=== PATIENT | female | born 1940 | race African-American/Black ===

== ENCOUNTER 2019-01-18 18:24 | Emergency (ER) | payer OTHER, BC ==
[~2019-01-18] VITALS: Ht 157.5 cm; Wt 68.0 kg
[2019-01-18] MEDS ORDERED: NORCO 5-325 TA1 EAC1 PO (21:52)
[2019-01-18 22:24] VITALS: BP 116/60
== END 2019-01-18 22:35 | disposition home or self-care (01) ==
LOC: ER 18:24
DX: S42.295A Other nondisplaced fracture of upper end of left humerus, initial encounter for closed fracture (principal); S80.01XA Contusion of right knee, initial encounter; I10 Essential (primary) hypertension; E11.9 Type 2 diabetes mellitus without complications; W18.39XA Other fall on same level, initial encounter; Y93.89 Activity, other specified; Y92.481 Parking lot as the place of occurrence of the external cause; Y99.8 Other external cause status

== ENCOUNTER 2020-08-20 21:05 | Inpatient (IN) | payer OTHER, BC ==
[~2020-08-20] VITALS: Ht 160 cm; Wt 52.5 kg
--- NOTE | ~2020-08-20 | EMS ---
[address] [address] EMS Patient Care Report Name: SILVANO JONES Room #: PRE ER M.R.#: [id number] Admission: Attend Phys: Discharge: Date of : 42 Report #: [id number] THIS REPORT FOR: //name// Report Transmitted: 08/20/2020 21:48 EMS Care Summary [place], [place]/[facility] Incident [id number] @ 08/20/2020 20:17 Incident [place] [address] Patient SILVANO JONES Female, 80 Years 1940 Patient Address [address] [place] [address] Patient History Diabetes,Hypertension (HTN),Hyperlipidemia,Cardiac Condition - Other,Mastectomy, Patient Allergies Other drug allergy, Patient Medications Lovastatin, Potassium, Vitamin B12, Furosemide, Carvedilol, Metformin, Chief Complaint COUGH Disposition Transported No Lights/Check Dispatch Reason Sick Person Transported To [facility] Narrative DISPATCHED EMERGENCY ON A SICK. PUMPER 42 [address] SC[address] SIMULTANEOUSLY. 80 Y/O FEMALE LAYING SUPINE IN BED APPEARING IN NO IMMEDIATE DISTRESS. GCS 15 AND A/OX4. STATES THAT SHE STARTED HAVING A COUGH AND WEAKNESS 2 WEEKS AGO. STATES SHE SAW HER DOCTOR LAST WEEK AND HE PRESCRIBED HER MEDICINE BUT SHE FEELS WORSE [facility] [address] [place] [address] EMS Patient Care Report Name: SILVANO JONES Room #: PRE M.R.#: [id number] Admission: Attend Phys: Discharge: Date of : 42 Report #: [id number] TODAY. STATES THAT SHE HAS BEEN COUGHING UP THICK WHITE MUCOUS. DENIES ANY SOA, C/P, NAUSEA, VOMITING. CONSENTS FOR TX AND TRANSPORTATION. V/S'S OBTAINED. MOVED WITHOUT INCIDENT TO AMBULANCE VIA STRETCHER. PLACED ON MONITOR AND V/S'S OBTAINED. IV ESTABLISHED. TRANSPORTED TO [facility] PER PT REQUEST. REASSESSED ENROUTE. REMAINS GCS 15 AND ALERT. V/S'S CONTINOUSLY MONITORED ENROUTE. COUGH AND WEAKNESS REMAIN UNCHANGED. REPORT CALLED TO HOSPITAL. MOVED WITHOUT INCIDENT TO ER HOSPITAL BED 6. PT CARE TRANSFERRED TO ED RN. Initial Vitals @20:55P: 88,R: 18,BP: 121/84,Pain: 0/10,SpO2: 100,MN Suspected: false @20:48P: 98,R: 20,BP: 130/88,GCS: 15,SpO2: 96,Revised Trauma: 12, @20:25P: 70,R: 18,BP: 107/73,Pain: 0/10,GCS: 15,Glucose: 317,SpO2: 95,Revised Trauma: 12, @20:36P: 90,R: 20,BP: 121/81,Pain: 0/10,GCS: 15,Temp: 98F,CO: 0,SpO2: 98,Revised Trauma: 12, Assessments @20:24MENTAL:Person Oriented,Time Oriented,Place Oriented,Event Oriented,SKIN:HEENT:Head/Face: No Abnormalities,Neck/Airway: No Abnormalities,LUNG SOUNDS:General: No Abnormalities,ABDOMEN:General: No Abnormalities,PELVIS//GI:EXTREMITIES:Capillary Refill: Left Lower: < 2 Sec,Capillary Refill: Right Lower: < 2 Sec,Capillary Refill: Right Upper: < 2 Sec,Capillary Refill: Left Upper: < 2 Sec,Left Arm: No Abnormalities,Right Arm: No Abnormalities,Left Leg: No Abnormalities,Right Leg: No Abnormalities,PULSE:Radial: 2+ Normal,NEURO:No Abnormalities,@20:54MENTAL:No Abnormalities,SKIN:No Abnormalities,HEENT:Head/Face: No Abnormalities,Eyes: No Abnormalities,Neck/Airway: No Abnormalities,LUNG SOUNDS:General: No Abnormalities,Left Upper: No Abnormalities,Right Upper: No Abnormalities,Left Lower: No Abnormalities,Right Lower: No Abnormalities,ABDOMEN:General: No Abnormalities,Left Upper: No Abnormalities,Right Upper: No Abnormalities,Left Lower: No Abnormalities,Right Lower: No Abnormalities,PELVIS//GI:EXTREMITIES:Left Arm: No Abnormalities,Right Arm: No Abnormalities,Left Leg: No Abnormalities,Right Leg: No Abnormalities,PULSE:NEURO: Impression Cough Procedures @20:38Saline Lock cc (18 ga) Site: Antecubital-RightResponse: UnchangedFailed@20:38StretcherResponse: Unchanged@20:413-Lead ECGResponse: UnchangedSucceeded@20:23ALS AssessmentResponse: UnchangedSucceeded@20:41Saline Lock cc (20 ga) Site: Hand-RightResponse: UnchangedFailed@20:43 cc (20 ga) Site: Antecubital-LeftResponse: UnchangedFailed@20:46Saline Lock 10cc (20 ga) Site: Hand-LeftResponse: UnchangedSucceeded [facility] [address] [place] [address] EMS Patient Care Report Name: JONESSILVANO Room #: PRE M.R.#: [id number] Admission: Attend Phys: Discharge: Date of : 42 Report #: [id number] Timeline 20:16,Call Received 20:16,Dispatch Notified 20:17,Dispatched 20:18,En Route 20:22,On Scene 20:23,At Patient 20:23,ALS Assessment,Response: UnchangedSucceeded, 20:25,BP: 107/73 M,PULSE: 70,RR: 18 R,SPO2: 95 Ox,ETCO2: ,B,PAIN: 0,GCS: 15, 20:36,BP: 121/81 M,PULSE: 90,RR: 20 R,SPO2: 98 Ox,ETCO2: ,BG: ,PAIN: 0,GCS: 15, 20:38,Saline Lock cc 18 ga Site: Antecubital-Right,Response: UnchangedFailed, 20:38,Stretcher,Response: Unchanged 20:41,3-Lead ECG,Response: UnchangedSucceeded, 20:41,Saline Lock cc 20 ga Site: Hand-Right,Response: UnchangedFailed, 20:42,Depart Scene 20:43, cc 20 ga Site: Antecubital-Left,Response: UnchangedFailed, 20:46,Saline Lock 10cc 20 ga Site: Hand-Left,Response: UnchangedSucceeded, 20:48,BP: 130/88 M,PULSE: 98,RR: 20 R,SPO2: 96 Ox,ETCO2: ,BG: ,PAIN: ,GCS: 15, 20:55,BP: 121/84 M,PULSE: 88,RR: 18 R,SPO2: 100 Ox,ETCO2: ,BG: ,PAIN: 0,GCS: , 21:01,At Destination 21:14,Call Closed Disclaimer v1.1 Copyright 2020 [employer] This EMS Care Summary contains data elements from the applicable legal record (which may be displayed differently). It is designed to provide pertinent information for the following purposes: continuity of care, clinical quality, and state data reporting. The complete legal record is available to ED staff and administrators of the receiving hospital in ES's Patient Tracker. All data is provided "as is."
[2020-08-20 21:05] VITALS: BP 126/70
[~2020-08-20 21:05] MED LIST: NORCO 5-325 TA1 EAC1 PO
[2020-08-20 22:31] LABS: BE(vivo) -7.3 mmol/L (-2 to +3); HCO3 16.9 mmol/L (22.0-26.0); PCO2 30.6 mmHg (35.0-45.0); pH 7.361 (7.360-7.450); sO2 87.8 % (92.0-98.0)
[2020-08-20 22:32] LABS: PO2 54.7 mmHg (80.0-100.0)
[2020-08-20 22:42] LABS: EOSINOPHILS 0.1 % (0.0-3.0)
[2020-08-20 22:44] LABS: ABSOLUTE NEUTROPHILS 6.7 thou/uL (1.4-8.2); BASOPHILS 0.2 % (0.0-2.0); HEMATOCRIT 35.8 % (37.0-47.0); HEMOGLOBIN 11.8 gm/dL (12.0-15.0); LYMPHOCYTES 10.2 % (24.0-44.0); MCH 29.9 pg (26.0-34.0); MCHC 32.9 g/dL (28.0-37.0); MCV 90.9 fL (80.0-100.0); MONOCYTES 9.3 % (1.0-8.0); PLATELET COUNT 205 thou/uL (150-400); POLYS 80.2 % (36.0-66.0); RBC 3.94 mil/uL (4.20-5.00); RDW 15.4 % (10.5-14.5); WBC 8.4 thou/uL (4.0-11.0)
[2020-08-20 22:54] LABS: ANION GAP 12 mmol/L (7-16); BUN 44 mg/dL (7-18); CALCIUM 8.5 mg/dL (8.5-10.1); CHLORIDE 107 mmol/L (98-107); CO2 17 mmol/L (21-32); CREATININE 1.4 mg/dL (0.6-1.0); GLUCOSE 298 mg/dL (74-106); POTASSIUM 5.7 mmol/L (3.5-5.1); SODIUM 136 mmol/L (136-145)
[2020-08-20 22:58] LABS: ALBUMIN 3.6 g/dL (3.4-5.0); SGOT 32 U/L (15-37); SGPT 58 U/L (30-65); TOTAL BILIRUBIN 0.9 mg/dL (0.2-1.0); TOTAL PROTEIN 6.6 g/dL (6.4-8.2); TROPONIN-I <0.06 ng/mL (<0.06)
[2020-08-20 23:11] LABS: URINE BILIRUBIN 1+ (Negative); URINE BLOOD NEGATIVE (Negative); URINE CLARITY SL CLOUDY; URINE COLOR YELLOW; URINE GLUCOSE-RANDOM* NEGATIVE (Negative); URINE KETONES TRACE (Negative); URINE LEUKOCYTES-REFLEX NEGATIVE (Negative); URINE NITRITE-REFLEX NEGATIVE (Negative); URINE PROTEIN (DIPSTICK) 2+ (Negative); URINE SPECIFIC GRAVITY >= 1.030 (1.005-1.035)
[2020-08-20 23:31] VITALS: BP 126/70
[2020-08-20 23:46] LABS: SQUAMOUS 4-10 Moderate /LPF (0-3); URINE RBC 3-10 Few /HPF (0-2); URINE WBC-REFLEX 0-5 Rare /HPF (0-5)
[2020-08-20 23:47] LABS: AMORPHOUS URATES Moderate /LPF (None Seen); BACTERIA-REFLEX 1-9 Few /HPF (None Seen); HYALINE CASTS 0-3 Few /LPF (None Seen); MUCUS 0-3 Light strn/LPF (None Seen)
[2020-08-21] MEDS ORDERED: FUROSEMIDE 40 M40 M1 PO (00:10)
[2020-08-21] MEDS ORDERED: POTASSIUM CHLO10 ME1 PO (00:10)
[2020-08-21 00:38] VITALS: BP 119/65
[2020-08-21 02:05] LABS: HEMATOCRIT 32.9 % (37.0-47.0); HEMOGLOBIN 10.7 gm/dL (12.0-15.0); MCH 29.4 pg (26.0-34.0); MCHC 32.5 g/dL (28.0-37.0); MCV 90.5 fL (80.0-100.0); RBC 3.63 mil/uL (4.20-5.00); RDW 15.3 % (10.5-14.5); WBC 7.9 thou/uL (4.0-11.0)
[2020-08-21 02:12] LABS: ALBUMIN 3.2 g/dL (3.4-5.0); CALCIUM 8.3 mg/dL (8.5-10.1); CREATININE 1.6 mg/dL (0.6-1.0); TOTAL BILIRUBIN 0.7 mg/dL (0.2-1.0); TOTAL PROTEIN 6.1 g/dL (6.4-8.2)
[2020-08-21 02:19] LABS: POTASSIUM 4.5 mmol/L (3.5-5.1)
--- NOTE | 2020-08-21 04:29 | NUR ---
Admitted from ED tachypneic respirations 30-40, Sinus arrythmia with frequent PVCS on 3 L/NC. Admission history and assessments completed. Careplan initiated. Patient now on BIPAP with attempt to diurese. Lasix 40 mg IV given- put out 2000 cc per mondragon catheter which was placed for accurate intake and output measurement. Sats now 100% BIPAP at 50% oxygen. Abnormal labs reported to Bruce Salcedo CAREER TECHNICAL EDUCATION INSTRUCTOR with orders.
[2020-08-21 05:38] VITALS: BP 121/89
--- NOTE | 2020-08-21 07:08 | EKG ---
[place] [address] [facility] [place] [address] ELECTROCARDIOGRAM REPORT Name: SILVANO JONES Room #: 353-P ADM IN M.R.#: [id number] Admission: 08/20/20 Attend Phys: Jamel Sims Discharge: Date of : 42 Report #: [id number] [facility] ED Test Date: 2020-08-20 Test Time: 21:15:26 Pat Name: SILVANO JONES Department: Room: 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
--- NOTE | 2020-08-21 11:16 | 2DMMODE ---
[facility] [place] [address] 2 D/M-MODE ECHOCARDIOGRAM Name: SILVANO JONES Room #: 353-P ADM IN M.R.#: [id number] Admission: 08/20/20 Attend Phys: Jamel Sims Discharge: Date of : 42 Report #: [id number] THIS REPORT FOR: cc: Criss Dickinson K. Steven DO Santiago, Patrick MD [facility] ~ APPROVED REPORT Study performed: 08/21/2020 10:08:56 EXAM: Comprehensive 2D, Doppler, and color-flow Echocardiogram Patient Location: In-Patient/Echo lab Room #: 353 Status: routine BSA: 1.61 HR: 96 bpm BP: 121/89 mmHg Rhythm: Irregular Other Information Study Quality: Good Indications Respiratory failure, CHF. Hx: CHF, HTN, HLP, DM. 2D Dimensions RVDd: 46.95 mm IVSd: 7.06 (7-11mm) LVOT Diam: 18.81 (18-24mm) LVDd: 59.73 mm PWd: 9.39 (7-11mm) Ascending Ao: 34.59 (22-36mm) LVDs: 53.90 (25-40mm) Left Atrium: 41.98 (27-40mm) Aortic Root: 31.70 mm Volumes Left Atrial Volume (Systole) Single Plane 4CH: 65.88 mL Single Plane 2CH: 78.78 mL LA ESV Index: 48.00 mL/m2 Aortic Valve AoV Peak Ross.: 1.22 m/s AO Peak Gr.: 5.93 mmHg LVOT Max P.88 mmHg LVOT Max V: 0.69 m/s [facility] [address] [address] 2 D/M-MODE ECHOCARDIOGRAM Name: JONESSILVANO Room #: 353-P [facility] IN [facility]#: [id number] Admission: 08/20/20 Attend Phys: Jamel Talley Mar Discharge: Date of : 42 Report #: [id number] ALEKSANDER Vmax: 1.57 cm2 Mitral Valve MV Decel. Time: 295.82 ms MV E Max Ross.: 1.45 m/s MV PHT: 81.37 ms MVA (PHT): 2.70 cm2 Pulmonary Valve PV Peak Ross.: 0.81 m/s PV Peak Gr.: 2.62 mmHg Tricuspid Valve TR Peak Ross.: 3.50 m/s RAP Estimate: 10.00 mmHg TR Peak Gr.: 49.07 mmHg PA Pressure: 59.00 mmHg Left Ventricle Left ventricle is mild to moderately dilated. There is normal left ventricular wall thickness. Left ventricular systolic function is severely decreased. LVEF is 20%. This study is not technically sufficient to allow evaluation of the LV diastolic function. Right Ventricle Right ventricle is dilated. Right ventricle is hypokinetic. Atria Left atrium is moderate to severely dilated. Right atrium is moderately dilated. Aortic Valve The aortic valve is normal in structure, midly sclerotic. Trace aortic regurgitation. There is no aortic valvular stenosis. Mitral Valve Patient states history of mitral valve repair. (Not noted in chart). Mean gradient through the valve is 4mmHg. Mild to moderate mitral regurgitation. Tricuspid Valve The tricuspid valve is normal in structure. Moderate tricuspid regurgitation. Estimated PAP of 60mmHg. Pulmonic Valve The pulmonary valve is normal in structure. Moderate pulmonic regurgitation. [facility] [address] [place] [address] 2 D/M-MODE ECHOCARDIOGRAM Name: SILVANO JONES Room #: 353-P [facility] IN M.R.#: [id number] Admission: 08/20/20 Attend Phys: Jamel Villalta Discharge: Date of : 42 Report #: [id number] Great Vessels The aortic root is normal in size. The ascending aorta is normal in size. IVC is dilated and collapses <50% with inspiration. Pericardium There is no pericardial effusion. <Conclusion> Left ventricle moderately dilated, normal wall thickness Severe global hypokinesis ejection fraction-15% Dilated RV/hypokinetic Moderately dilated left ventricle Moderate biatrial enlargement Color-flow Doppler study was performed of the aortic/mitral/tricuspid/pulmonary valve Normal aortic valve structure and function Mild-moderate central mitral valve insufficiency Moderate mitral annular calcification Previous history of a mitral valve repair, mean gradient of 4 mmHg Moderate tricuspid valve insufficiency Pulmonary systolic pressure estimated at 60 mmHg Normal aortic root size No pericardial effusion <ELECTRONICALLY SIGNED> By: Arsen Valadez MD, FACC 08/21/20 111 15 15 Arsen Valadez MD, FAC /INF
--- NOTE | 2020-08-21 14:38 | NUR ---
INITIAL ASSESSMENT: SW reviewed chart and spoke with nursing and attending physician. Pt was admitted from home due to pneumonia/acute respiratory failure. Pt had negative COVID test on 08/20. Pt is on IV abx and IV lasix. Pt currently on 2L of O2. No weekend discharge planned. SYD met with pt and son, Abner, at bedside. Introduced role of SW. Pt is alert/orientated x 4. Pt reports she lives at home with family. Prior to admission, pt was using a cane as needed. Pt also has a rollator walkert and w/c. No hx of HH services or post-acute placement. PT's PCP is Dr. Sanford Dickinson. Pt is interested in HH services upon discharge. Options discussed. Pt's spouse used HH in the past and family will try to find out which company he used. SW is following to assist as needed with discharge planning.
[2020-08-21 15:10] VITALS: BP 87/58
[2020-08-21 15:41] VITALS: BP 97/45
--- NOTE | 2020-08-21 16:07 | NUR ---
assumed care of pt at 0700. pt alert and oriented, on bipap overnight. mild resp distress on nasal cannula, but reports feeling much better. diuresing well with iv lasix. occasional beats of vtach on telemetry - asymtpomatic - cardio notified - bp low but pt asymptomatic. half dose beta lexi given early per dr order. good urinary output in mondragon. son at bedside throughout the day - agreeable and understanding with plan of care. nidiam.
[2020-08-21 19:45] VITALS: BP 98/63
[2020-08-22 00:13] VITALS: BP 98/67
[2020-08-22 04:39] VITALS: BP 103/66
[2020-08-22 07:23] VITALS: BP 103/68
[2020-08-22 09:27] LABS: CALCIUM 8.8 mg/dL (8.5-10.1); CREATININE 1.5 mg/dL (0.6-1.0); POTASSIUM 4.2 mmol/L (3.5-5.1)
[2020-08-22 15:21] VITALS: BP 108/64
--- NOTE | 2020-08-22 18:05 | NUR ---
PT UP TO W/C AND TOLERATED WELL. BACK TO BED NOW. PLEASANT WITH CARES. DOES NOT SEEM TO BE IN PAIN. CONT ON OXYGEN. WILL CONT WITH PLAN OF CARE.
[2020-08-22 19:35] VITALS: BP 110/61
[2020-08-22 23:15] VITALS: BP 103/63
[2020-08-23 03:40] VITALS: BP 106/71
[2020-08-23 04:12] LABS: CALCIUM 8.2 mg/dL (8.5-10.1); CREATININE 1.3 mg/dL (0.6-1.0); POTASSIUM 3.8 mmol/L (3.5-5.1)
[2020-08-23 04:36] LABS: ABSOLUTE NEUTROPHILS 6.8 thou/uL (1.4-8.2); BASOPHILS 0.1 % (0.0-2.0); EOSINOPHILS 0.2 % (0.0-3.0); HEMATOCRIT 34.1 % (37.0-47.0); HEMOGLOBIN 11.1 gm/dL (12.0-15.0); LYMPHOCYTES 10.1 % (24.0-44.0); MCH 29.4 pg (26.0-34.0); MCHC 32.5 g/dL (28.0-37.0); MCV 90.6 fL (80.0-100.0); MONOCYTES 13.1 % (1.0-8.0); PLATELET COUNT 167 thou/uL (150-400); POLYS 76.5 % (36.0-66.0); RBC 3.77 mil/uL (4.20-5.00); RDW 15.3 % (10.5-14.5); WBC 8.9 thou/uL (4.0-11.0)
[2020-08-23 07:12] VITALS: BP 90/54
--- NOTE | 2020-08-23 09:39 | NUR ---
ASSUMED PT CARE AT SHIFT CHANGE, PT COMPLAINT OF FEELING WOOZY. BP 90/54, BG 250. HELD HEART MEDS/LASIX D/T BP.
[2020-08-23 15:18] VITALS: BP 108/58
--- NOTE | 2020-08-23 18:07 | NUR ---
PLACED CALL TO PT SON MAXI TO SHARE PT HAS DECIDED TO GO AHEAD WITH CARDIAC PROCEDURE FOR TOMORROW. PT HAS NOT YET SIGNED CONSENT, WILL DO SO BEFORE PROCEDURE. PT IS CURRENTLY RESTING AFTER PRN DOSE OF ATIVAN.
[2020-08-23 19:40] VITALS: BP 74/52
[2020-08-23 23:52] VITALS: BP 107/57
[2020-08-23 23:53] VITALS: BP 107/57
[2020-08-24] VITALS (15 sets, daily range): BP systolic 87–113; BP diastolic 49–72
--- NOTE | 2020-08-24 04:13 | NUR ---
restless, she is wanting to go ahead and get the procedure done today. she says her breathing is normal for her. she has tossed and turned most of the night.
[2020-08-24 05:18] LABS: CALCIUM 8.6 mg/dL (8.5-10.1); CREATININE 1.4 mg/dL (0.6-1.0)
[2020-08-24 05:22] LABS: POTASSIUM 4.2 mmol/L (3.5-5.1)
--- NOTE | 2020-08-24 07:23 | EKG ---
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 : 1940 Requested By: Rocky Guzman Order Number: [id number] MD: Arsen Valadez Measurements Intervals [place] Rate: 81 P: 114 IA: 178 QRS: -71 QRSD: 118 T: QT: 456 QTc: 530 Interpretive Statements Sinus rhythm Paired ventricular premature complexes Left anterior fascicular block Nonspecific T abnrm, anterolateral leads Compared to ECG 08/20/2020 21:15:26 Ventricular premature complex(es) now present Left anterior fascicular block now present Atrial fibrillation no longer present Left bundle-branch block no longer present Electronically Signed On 08-24-2020 7:23:13 CDT by Arsen Valadez [email or web address] <ELECTRONICALLY SIGNED> By: Arsen Valadez MD, [facility] 08/24/2023 3 3 Arsen Valadez MD, [facility] /EPI
--- NOTE | 2020-08-24 08:49 | NUR ---
PT GOING TO COMMUNITY DEVELOPMENT TECHNICIAN THIS MORNING. CONSENT SIGNED AND ON THE CHART. MEDS GIVEN PER CARDIOLOGY PRIOR TO TRANSFER.
--- NOTE | 2020-08-24 15:48 | CATHLAB ---
[facility] [place] [address] INVASIVE PROCEDURE REPORT Name: SILVANO JONES Room #: 353-P ADM IN M.R.#: [id number] Admission: 08/20/20 Attend Phys: Jamel Mayank Levi Discharge: Date of : 42 Report #: [id number] THIS REPORT FOR: cc: Criss Dickinson K. Steven DO Mancuso, Gerald M. MD [facility] ~ APPROVED REPORT Study performed: 08/24/2020 08:28:20 Patient Details The patient is a 80 year-old female Event Personnel Rocky Guzman Auto Striper, Jeanmarie Arreguin RN RN, Lara Sanabria RTR, PAT Reyes, Zaida Grace Monitor, Monica De Leon RT(R)() Manager Sustainability Procedures Performed Art Access - R femoral artery* Saúl Access - R femoral vein Right and Left Heart Cath w/or w/o Coronarie [id number] RL 10475 Initial Mod Sed Same Phys/QHP Gr [id number] 37900 Mod Sed Same Phys/QHP Ea [id number] Indication Chest pain Procedure Narrative The Right Groin^ was infiltrated with 1% Lidocaine subcutaneous anesthesia. A PINNACLE 6FR Sheath #[id number] sheath was inserted into the RFA^. Coronary angiography was performed using coronary diagnostic catheters. The right coronary system was accessed and visualized with a JR4 catheter. The left coronary system was accessed and visualized with a JL4 catheter. The left ventricle was accessed and visualized with a STR PIG catheter. The patient tolerated the procedure well and there were no complications associated with the procedure. There was no hematoma. Intraoperative Conscious Sedation Sedation start time: 937 Case end Time: 1025 Versed 0.5 mg Fluoro Time: 2.41 minutes [facility] [address] [place] [address] INVASIVE PROCEDURE REPORT Name: SILVANO JONES Room #: 353-[facility] IN .R.#: [id number] Admission: 08/20/20 Attend Phys: Jamel Villalta Discharge: Date of : 42 Report #: [id number] Dose: DAP 2255.50 cGycm2 228 mGy Contrast Type and Amount: Visipaque 80 ml Hemodynamics The right atrial mean pressure is 17 mmHg. The right ventricular pressure is 55/7 mmHg. The pulmonary artery pressure is 57/24 mmHg with a mean of 39 mmHg. The mean pulmonary capillary wedge pressure is 33 mmHg. The aortic pressure is 116/67 mmHg with a mean of 91 mmHg. The left ventricular pressure is 114/11 mmHg with a mean of mmHg. The left ventricular end diastolic pressure is 23 mmHg. The cardiac output using thermo method is 2.05 L/min. The cardiac index using thermo method is 1.30 L/min/m2. Conclusion #1. Successful right heart catheterization with cardiac output by thermodilution. See above hemodynamics. #2 supravalvular aortogram revealing trivial aortic insufficiency normal caliber aorta. Appears to be a mitral valve in position. #3 moderate left ventricular enlargement with severe LV dysfunction EF 15%. #4 LAD with mild disease extends around the apex is a wraparound LAD which extends to the distal one third of the inferior wall. No occlusive disease. #5 nondominant circumflex with mild irregularity. #6 dominant right coronary artery although small PDA because of the large wraparound LAD. No occlusive disease. Recommendations and plan: Continue aggressive risk factor modification. Aggressive diuresis is indicated with marked elevation pulmonary pressures and pulmonary capillary wedge pressure. Will have patient evaluated for pacer ICD. <ELECTRONICALLY SIGNED> By: Rocky Guzman MD, FACC 08/24/20 1548 1548 1548 Rocky Guzman MD, FACC /INF
--- NOTE | 2020-08-24 18:34 | NUR ---
ASSUMED CARE THIS AM AT SHIFT CHANGE. PT A/O X 4, CALM AND COOPERATIVE THROUGHOUT SHIFT. VSS. WENT FOR CARDIAC CATH THIS AM, NO INTERVENTION TODAY. POSSIBLE ICD PLACEMENT TOMMORROW PER CARDIOLGY. GROIN SITE C/D/I, NO HEMATOMA, CLOSED WITH MYNX CLOSURE. VSS POST OP AND THROUGHOUT THE DAY. PT DROWSY MOST OF THE AFTERNOON, DID NOT EAT LUNCH, CRACKERS AND SPRITE FOR DINNER. FERRARA FOR STRICT I&0 WITH POSITIVE UO TODAY. PT PROGRESSING TOWARDS POC.
[2020-08-25] VITALS: BP 103/56
--- NOTE | 2020-08-25 04:03 | NUR ---
Patient making slow progress towards outcome goals. Planned BIV ICD orders pending, patient kept NPO after MN. Patient is aware of plans a explained by Dr. Guzman and is agreeable. Continues to diurese from lasix. Oxygenation optimal with 2.5L oxygen/NC.
[2020-08-25 04:19] VITALS: BP 112/65
[2020-08-25 04:20] VITALS: BP 112/65
[2020-08-25 07:13] VITALS: BP 105/58
--- NOTE | 2020-08-25 08:34 | NUR ---
Note Given: Y Facility List Provided:Y Facility [place]: None chosen at this time Karen Kwok NP discussed BPCI with this pt 08/24/2020
[2020-08-25 09:15] LABS: CALCIUM 8.7 mg/dL (8.5-10.1); CREATININE 1.4 mg/dL (0.6-1.0); POTASSIUM 3.4 mmol/L (3.5-5.1)
--- NOTE | 2020-08-25 11:06 | NUR ---
RECORDS REQUESTED FROM PT'S BROADCAST NEWS PRODUCER DR SHAHEED RESENDEZ FOR LAST OFFICE VISIT AND ECHO.
--- NOTE | 2020-08-25 15:44 | NUR ---
SW reviewed chart and spoke with nursing and attending physician. Pt is on 2L of O@. Pt is on IV lasix and IV abx. Pt to have ICD placed tomorrow. SYD met with pt at bedside to discuss discharge plan. SYD provided pt with [facility] list of SNFs and Agencies for review. Pt would like to review and discuss with family regarding discharge disposition. SYD is following to assist as needed with discharge planning.
--- NOTE | 2020-08-25 16:27 | NUR ---
PT ALERT AND ORIENTED X4. UP TO CHAIR WITH OT AND REMAINED SITTING UP FOR 4HRS. REFUSING TO WORK WITH PHYSICAL THERAPY THIS AFTERNOON. STATES SHE IS TOO TIRED TO GET OUT OF BED THIS AFTERNOON. PT'S SON HERE THIS AFTERNOON AND DISCUSSED AICD WITH DR YI. PT AND HER SON IN AGREEMENT WITH AICD PLACEMENT. RECORDS REQUESTED FROM DR RESENDEZ PT'S REGULAR MARKET CONSULTANT AND RECIEVED BY FAX AND PLACED IN THE CHART. SPOKE WITH PT'S DAUGHTER THIS AM AND UPDATED HER. PLAN FOR AICD TOMORROW. WILL CONTINUE TO MONITOR PATIENT.
[2020-08-25 20:16] VITALS: BP 90/59
--- NOTE | 2020-08-25 21:31 | NUR ---
PT ROOM CHANGED TO [facility]. PT HAD BEEN RESTING IN LOUNGE CHAIR AND RETURNED TO BED. BED ALARM ON. O2 PER NC. PT PROVIDED HS SNACK. JOSIAS TO DD. PT VERBALIZED UNDERSTANDING OF NPO P MN FOR POSSIBLE PROCEDURE IN THE AM.
[2020-08-26 04:19] VITALS: BP 97/69
[2020-08-26 07:48] VITALS: BP 77/53
[2020-08-26 08:38] VITALS: BP 109/57
[2020-08-26 10:08] LABS: CALCIUM 8.5 mg/dL (8.5-10.1); CREATININE 1.1 mg/dL (0.6-1.0)
--- NOTE | 2020-08-26 13:03 | NUR ---
RN ASSUMED PT'S CARE AT 0700AM, PT IS A&OX2 ( PERSON AND PLACE ), PT IS ON O2 2L/MIN/NC, PT'S VS ARE STABLE WHEN SHE IS IN 3WEST, PT'S WAS GOING TO CHARTER BUS DRIVER FOR AICD PLACEMENT ABOUT 1000AM, PT WILL GO TO CCU ROOM 218 AFTER PT'S AICD DONE, RN HAS DIVING REPORT TO CCU RN , AND PT'S FAMILY HAS NOTIFIED.
--- NOTE | 2020-08-26 13:44 | NUR ---
PTS ARRIVAL TO 2N/CCU AT 1325. PT STATES SHE IS SLEEPY. PT DENIES PAIN AT THIS TIME. PT EDUCATED ON BEDREST. PTS SON AT BEDSIDE. VSS. WILL CONTINUE TO MONITOR AND FOLLOW POC.
--- NOTE | 2020-08-26 15:39 | NUR ---
ON-GOING ASSESSMENT: CM REVIEWED CHART. PT REMAINS ON IV ANBX. PT HAD ICD PLACEMENT TODAY AND WAS UNABLE TO WORK WITH THERAPIES DUE TO PROCEDURE. HH VS SNF HAS BEEN DISCUSSED WITH FAMILY. CM REACHED OUT TO PTS SON MAXI WELL PTS DAUGHTER GIANNA WHO REPORT PT LIVES WITH HER DAUGHTER IRINA BUT SOMEONE IS NOT WITH HER 12/12. THEY STATE BETWEEN THE THREE OF THEM THEY TRY AND ROTATE AND BE THERE MUCH POSSIBLE. THEY ARE WANTING TO SEE IF PT/OT RECOMMENDS HH OR SNF. CM SPOKE WITH MAXI AND GIANNA ABOUT HH/SNF OPTIONS AND THEY HAVE NO PREFERENCE AT THIS TIME. MAXI STATING HE HAS THE LIST AND IS GOING TO CHECK AND SEE WHAT HH HIS FATHER HAS HAD IN THE PAST AND WILL TALK WITH CM TOMORROW AFTER PT IS ABLE TO WORK WITH THERAPIES AND GIVE RECOMMENDATIONS. HE STATES THEY WILL DISCUSS A FAMILY THEIR OPTIONS BUT FEEL SNF MIGHT BE THE BEST OPTION IF SHE IS AGREEABLE. CM WILL CONTINUE TO FOLLOW TO ASSIST NEEDED.
--- NOTE | 2020-08-26 16:26 | NUR ---
PT REPOSITIONED, VSS. ASSESSMENT PERFORMED CHARTED. CONTINUE TO MONITOR AND FOLLOW POC.
--- NOTE | 2020-08-26 16:41 | NUR ---
CONTACTED DR MARCELINO ABOUT PTS FERRARA, PER CARDIOLOGY PTS FERRARA IS TO BE REMOVED, HOWEVER PT HAD FERRARA IN PRIOR TO ICD PLACEMENT FOR RETENTION. AWAITING DR RESPONSE TO CLARIFY ORDERS.
--- NOTE | 2020-08-26 17:02 | NUR ---
PT REFUSED TO HAVE FERRARA CATHETER REMOVED, RN DISCUSSED REASONINGS BEHIND REMOVING THE FERRARA CATHETER TO PREVENT CAUTIS, PT STILL WOULD LIKE DR MARCELINO TO LEAVE FERRARA CATHETER IN UNITL BEDREST IS UP TOMORROW. DR MARCELINO NOTIFIED AND WAS OKAY WITH THE FERRARA CATHETER STAYING IN UNTIL TOMORROW.
[2020-08-26 20:20] VITALS: BP 102/58
[2020-08-27 00:28] VITALS: BP 105/60
[2020-08-27 04:00] VITALS: BP 106/61
[2020-08-27 05:38] LABS: HEMATOCRIT 32.3 % (37.0-47.0); HEMOGLOBIN 10.6 gm/dL (12.0-15.0); MCH 29.7 pg (26.0-34.0); MCHC 32.7 g/dL (28.0-37.0); RBC 3.55 mil/uL (4.20-5.00); RDW 15.4 % (10.5-14.5); WBC 7.3 thou/uL (4.0-11.0)
[2020-08-27 06:06] LABS: CALCIUM 8.4 mg/dL (8.5-10.1); POTASSIUM 3.6 mmol/L (3.5-5.1)
--- NOTE | 2020-08-27 07:42 | NUR ---
SLEPT MOST OF SHIFT. LEFT ARM IMMOBILIZER IN PLACE. NO COMPLAINTS OF PAIN OR SHORTNESS OF AIR. WORKING ON GOALS AND PLAN OF CARE FOR NOC. PROGRESSING TOWARDS DISCHARGE GOALS. CONTINUE TO ASSES CLOSELY.
[2020-08-27 07:54] VITALS: BP 99/62
--- NOTE | 2020-08-27 08:58 | NUR ---
ASSUMED PT CARE AT 0700. PT RESTING. 0845, ASSESSMENT PERFORMED CHARTED. VSS. PT EATING BREAFKAST. PT HAS A DRY COUGH, WORSE WITH EATING. TALKED TO DR MARCELINO ABOUT A SPEECH THERARPY CONSULT. MEDICATION ADMINISTRATION WITH APPLESAUCE TO ASSIST WITH SWALLOWING PILLS. WILL CONTINUE TO MONITOR AND FOLLOW POC.
[2020-08-27 11:38] VITALS: BP 105/63
[2020-08-27] MEDS ORDERED: PACERONE 200 M200 M1 PO (14:31)
[2020-08-27] MEDS ORDERED: BAYER CHEWABLE81 MG PO (14:31)
[2020-08-27] MEDS ORDERED: COZAAR 25 MG TA25 M1 PO (14:31)
[2020-08-27] MEDS ORDERED: DEMADEX20 MG PO (14:31)
[2020-08-27] MEDS ORDERED: IPRAT-ALBUT 0.5-3 ML INH (14:31)
[2020-08-27] MEDS ORDERED: CARVEDILOL3.125 MG PO (14:31)
[2020-08-27] MEDS ORDERED: K-DUR 20 MEQ T20 MEQ PO (14:31)
--- NOTE | 2020-08-27 15:30 | NUR ---
Case discussed with the care team and rehab eval requested. [facility] evaluated and they can accept the pt for low endurance program. Pt is agreeeable. Spouse with son Abner and he is also agreeable. He will updated his sisters Chantal and Aura. Possible dc to [facility] this evening pending a covid test. RN aware and swab has been sent to the lab. Nursing to call Abner with her room number is she is able dc to rehab this evening. Abner educated on rehab team conference next Monday and cm will continue to follow for dc planning. Pt had [facility] in the past and would like to use them again at ca. All parties updated on the dc plan.
[2020-08-27 15:38] VITALS: BP 98/58
--- NOTE | 2020-08-27 17:33 | NUR ---
TALKED TO CHANEL FROM [facility], WE ARE CURRENTLY WAITING FOR COVID TEST RESULTS, ONCE THOSE ARE RECEIVED, PT MAY D/C TO [facility]. IF IT WILL BE LATER THAN 2099 THEN SHE WILL D/C TOMORROW.. WILL CONTINUE TO MONITOR PT AND FOLLOW POC.
--- NOTE | 2020-08-27 18:28 | NUR ---
GAVE REPORT TO [facility] GRINDING WHEEL INSPECTOR. IF COVID DOES NOT COME BACK BEFORE 2100 THEN PATIENT WILL STAY ON CCU AND IF IT DOES THAN PATIENT WILL BE D/C TO [facility].
[2020-08-27 19:51] VITALS: BP 90/49
[2020-08-27 22:06] LABS: GLYCOHEMOGLOBIN (HGB A1C) 7.2 % (4.8-5.6)
--- NOTE | 2020-08-28 09:15 | HC ---
[facility] [place] [address] CONSULTATION Name: SILVANO JONES Room #: 218-[facility] IN M.R.#: [id number] Admission: 08/20/20 Attend Phys: Jamel Talley Levi Discharge: 08/27/20 Date of : 42 Report #: [id number] THIS REPORT FOR: cc: Criss Dickinson K. Steven DO Couchonnal, Luis F. MD ~ DATE OF SERVICE: 08/24/2020 ELECTROPHYSIOLOGY CONSULTATION REASON FOR CONSULTATION: Possible ICD. HISTORY OF PRESENT ILLNESS: The patient is a 80-year-old female who follows at [facility] and has a history of prior mitral valve repair surgery and possible congestive heart failure. I do not have any outside records currently. The patient presented with congestive heart failure symptoms, has been diuresed, underwent an echocardiogram showing EF of 15% with PA pressures of 60 and a coronary angiogram that showed no significant coronary artery disease requiring intervention. Currently, she denies any chest pain or chest tightness. She does have chronic exertional dyspnea with xacf-kh-huodsuay activities. She denies PND or orthopnea. She denies presyncope or syncope. REVIEW OF SYSTEMS: A 12-point review of system was negative other than what I mentioned above. PAST MEDICAL HISTORY: 1. Mitral valve repair. 2. CHF. 3. Diabetes. 4. Hypertension. 5. Hyperlipidemia. SOCIAL HISTORY: Does not smoke. FAMILY HISTORY: Noncontributory. ALLERGIES: None. MEDICATIONS: At home include potassium, Lasix, and hydrocodone. PHYSICAL EXAMINATION: VITAL SIGNS: Vitals have been reviewed. Temperature 36.6, pulse 80, respiration 14, blood pressure 103/61. GENERAL: The patient is in no acute distress. HEENT: Oropharynx is clear. [facility] [address] [place] [address] CONSULTATION Name: SILVANO JONES Room #: 218-P [facility] IN M.R.#: [id number] Admission: 08/20/20 Attend Phys: Noearsalan Mayank Levi Discharge: 08/27/20 Date of : 42 Report #: [id number] NECK: Supple, with no thyromegaly. HEART: Regular rate and rhythm, positive S3, slight elevated JVD and slight hepatojugular reflux. LUNGS: Clear bilaterally. ABDOMEN: Soft, nontender, nondistended. EXTREMITIES: No clubbing, cyanosis, edema. BACK: With no CVA tenderness. NEUROLOGIC: Cranial nerves 2-12 are intact. PSYCHIATRIC: She is appropriate. LABORATORY DATA: White count 8, hemoglobin 11, platelets 167. Chemistry: Potassium 4.2, creatinine 1.4. COVID-19 is negative. Chest x-ray shows prior sternotomies and some hazy infiltrate in the right lower lobe with bilateral pleural effusions, more on the right. She does have enlarged cardiac silhouette and a left shoulder replacement. ASSESSMENT: 1. Acute on chronic left ventricular systolic heart failure. At this time, I have no prior echocardiograms and awaiting to see prior clinic notes. We will await these findings to determine her adequacy for ICD implantation at this time. 2. Nonsustained ventricular tachycardia. The patient has episodes of nonsustained ventricular tachycardia on cardiac telemetry. I agree with amiodarone therapy. If she were to be discharged, I would recommend LifeVest placement. We will continue to follow. <ELECTRONICALLY SIGNED> By: Demario Villasenor MD 08/28/20 0915 1503 05 Demario Villasenor MD /nt
--- NOTE | 2020-08-28 09:15 | P ---
[facility] [place] [address] PROCEDURE REPORT Name: SILVANO JONES Room #: 218-P [facility] IN M.R.#: [id number] Admission: 08/20/20 Attend Phys: Jamel Mayank Levi Discharge: 08/27/20 Date of : 42 Report #: [id number] THIS REPORT FOR: cc: Criss Dickinson K. Steven DO Couchonnal, Luis F. MD ~ DATE OF SERVICE: 08/26/2020 PROCEDURE PERFORMED: Dual-chamber ICD. PREOPERATIVE DIAGNOSES: 1. Nonischemic cardiomyopathy. 2. Acute on chronic left ventricular systolic heart failure. 3. Prior mitral valve repair. HISTORY: The patient is a 80-year-old female with history of prior mitral valve and tricuspid valve repair, who has longstanding nonischemic cardiomyopathy, who has been on optimal medical therapy in form of beta lexi and ARB. She presents with acute on chronic left ventricular systolic heart failure. Echo is showing an EF of less than 35%. Diagnostic cardiac catheterization is showing no significant CAD. She has episodes of frequent nonsustained VT, the longest was 15 seconds. She is here for ICD implantation for primary prevention of sudden cardiac . ANESTHESIA: The patient underwent MAC anesthesia with no anesthesia-related complications. DESCRIPTION OF PROCEDURE: The patient and the son who is power of attorney recruiter underwent informed consent. We discussed the details of the procedure including the risks, which include but not limited to bleeding, infection, vascular damage, cardiac perforation and pneumothorax. They understood these risks and were willing to proceed. The patient was brought to EP laboratory in fasting and sedated state, prepped and draped in a sterile fashion. She underwent a venogram showing patency of left axillary vein and received IV antibiotics for antibiotic prophylaxis. Next, lidocaine was injected below the level of left clavicle. Incision was made and pocket was created over the prepectoral fascia. Access was obtained twice to left axillary vein. Sheath positioned using the modified Seldinger technique. Lead was positioned into the right ventricular apex and right atrial appendage, both with adequate pacing and sensing thresholds. Leads were sutured to prepectoral fascia. Device connected. Pocket was irrigated with vancomycin. Pocket was closed in 2 layers using 2-0 for the deep layer, 3-0 for the mid layer and surgical glue was placed to outer skin layer. The patient awoke neurologically and hemodynamically intact. No complications and no significant [address] [address] PROCEDURE REPORT Name: SILVANO JONES Room #: 218-P [facility] IN M.R.#: [id number] Admission: 08/20/20 Attend Phys: Jamel Sims Discharge: 08/27/20 Date of : 42 Report #: [id number] bleeding. The implanted device and leads were Medtronic. The defibrillator was a Primo MRI compatible, model #YCEI4M4, serial #[id number]. Atrial lead was a 5076, 52 cm, serial #[id number]. RV lead was Medtronic, model #6935, 62 cm, serial #[id number]. Atrial lead demonstrated P-wave 1.6 millivolts, pacing impedance of 603 ohms, pacing threshold 0.8 volts at 0.5 milliseconds. RV lead demonstrated some R waves of 7.5 millivolts, pacing impedance of 563 ohms, pacing threshold of 0.4 volts at 0.5 milliseconds. The device was programmed to the DDD 60-130 mode. VT monitor zone was set at 150-180 beats per minute. VT zone was set at 180-220 beats per minute with 3 rounds of burst followed by 3 rounds of ramp followed by max output shocks. The VF zone was set at greater than 220 beats per minute with ATP while charging followed by max output shocks. CONCLUSIONS: 1. Successful dual-chamber ICD implantation. 2. Satisfactory atrial and ventricular pacing and sensing thresholds. <ELECTRONICALLY SIGNED> By: Demario Villasenor MD 08/28/20 0915 1240 [id number] Demario Villasenor MD /nt
== END 2020-08-27 21:25 | DRG 853 ==
LOC: ER 21:05 → 3W 23:29 → EROBS 23:29 → 3W 08-21 00:33 → 2N 08-26 11:53
PROVIDERS: Hospitalist; Internal Medicine Cardiovascular Disease; Nurse Practitioner; Nurse Practitioner Adult Health; Nurse Practitioner Family; Physician Assistant; ADMIT Hospitalist; ATTEND Hospitalist
PROC: 5A09357 Assistance with Respiratory Ventilation, Less than 24 Consecutive Hours, Continuous Positive Airway Pressure (ICD-10-PCS; principal; 2020-08-21)
PROC: B211YZZ Fluoroscopy of Multiple Coronary Arteries using Other Contrast (ICD-10-PCS; 2020-08-24)
PROC: B215YZZ Fluoroscopy of Left Heart using Other Contrast (ICD-10-PCS; 2020-08-24)
PROC: 4A023N8 Measurement of Cardiac Sampling and Pressure, Bilateral, Percutaneous Approach (ICD-10-PCS; 2020-08-24)
PROC: B51C1ZZ Fluoroscopy of Left Lower Extremity Veins using Low Osmolar Contrast (ICD-10-PCS; 2020-08-26)
PROC: 02HK3JZ Insertion of Pacemaker Lead into Right Ventricle, Percutaneous Approach (ICD-10-PCS; 2020-08-26)
PROC: 0JH606Z Insertion of Pacemaker, Dual Chamber into Chest Subcutaneous Tissue and Fascia, Open Approach (ICD-10-PCS; 2020-08-26)
PROC: 02H63JZ Insertion of Pacemaker Lead into Right Atrium, Percutaneous Approach (ICD-10-PCS; 2020-08-26)
DX: A41.9 Sepsis, unspecified organism (principal); J18.9 Pneumonia, unspecified organism; I50.23 Acute on chronic systolic (congestive) heart failure; J96.21 Acute and chronic respiratory failure with hypoxia; N17.9 Acute kidney failure, unspecified; I42.8 Other cardiomyopathies; I47.1 Supraventricular tachycardia; Z20.822 Contact with and (suspected) exposure to COVID-19; E11.9 Type 2 diabetes mellitus without complications; E87.5 Hyperkalemia; E78.5 Hyperlipidemia, unspecified; R53.81 Other malaise; I11.0 Hypertensive heart disease with heart failure; E78.00 Pure hypercholesterolemia, unspecified; E87.6 Hypokalemia; I49.3 Ventricular premature depolarization; I27.20 Pulmonary hypertension, unspecified; Z79.82 Long term (current) use of aspirin; Z79.899 Other long term (current) drug therapy

== ENCOUNTER 2020-08-27 15:18 | Inpatient (IN) | payer OTHER, BC ==
[~2020-08-27] VITALS: Ht 160 cm; Wt 52.7 kg
--- NOTE | ~2020-08-27 | PLAN ---
Formerly [facility] [place] [address] REHAB UNIT PLAN OF CARE Name: SILVANO JONES Room #: 510-P ADM IN M.R.#: [id number] Admission: 08/27/20 Attend Phys: Tommy Morgan MD Discharge: Date of : 42 Report #: [id number] THIS REPORT FOR: cc: Criss Dickinson K. Steven DO Smithson,Tommy Wilson MD ~ DATE OF SERVICE: 08/29/2020 PROGRESS NOTE/OVERALL PLAN OF CARE SUBJECTIVE: The patient is seen on the inpatient rehab shen. She was seen back earlier. She is in no distress. Temperature 37, pulse 61, respirations 17, and blood pressure 102/63. She is status post the cardiac pacemaker incision looking good, ____ left upper extremity, but is no longer utilized the immobilizer. She is forgetful, cooperative. She is working in therapies with transfers at a mod assist level, gait is mod assist 5 feet without a device. In occupational therapy, lower body dressing, max assist; upper body dressing, has been moderate assistance. She is mod assist for functional mobility. In speech therapy, she is on a mechanical soft with all liquid diet. She has syeystuy-vy-gwgwux cognitive deficits and severe memory deficits. ASSESSMENT: 1. Multifactorial encephalopathy. She has the recent pacemaker placed with a possible hypoxic component. She has very low cardiac ejection fraction, had hypoxic respiratory failure, pulmonary hypertension and also has the recent electrolyte abnormalities along with her diabetes. 2. Medical complexity with generalized debilitation. 3. Acute exacerbation of congestive heart failure with cardiomyopathy with an ejection fraction noted at 15%. 4. Recent acute hypoxic respiratory failure with community-acquired pneumonia. 5. Supraventricular tachycardia, status post ICD placement, 08/26/2020. 6. Severe pulmonary hypertension. 7. Hyperkalemia. 8. Diabetes mellitus type 2. 9. Hypertension. PLAN: The overall plan of care is based on the preadmission screen and information garnered from therapy assessments. 1. Estimated length of stay is probably around 10-14 days, potential longer if warranted. 2. Medical prognosis is reasonably good. 3. Anticipated interventions include the interdisciplinary acute inpatient rehabilitation program. 4. Anticipated functional outcomes would be for the patient to become modified independent with transfers, mobility, ADLs and to improve as far as cognition to [address] [address] REHAB UNIT PLAN OF CARE Name: SILVANO JONES Room #: 510-P ADM IN .R.#: [id number] Admission: 08/27/20 Attend Phys: Tommy Morgan MD Discharge: Date of : 42 Report #: [id number] be able to return back to the home setting. 5. Discharge destination would be back home with her daughter. 6. Expected therapy by discipline includes PT, OT and speech 1 hour per day each five days a week throughout the duration of the acute inpatient rehabilitation stay. ADDENDUM: The patient's prognosis for significant practical improvement within a reasonable period of time appears good. Given the patient's complex medical condition and risk of further medical complication, rehabilitation services could not be safely provided at a lower level of care such as a [place] [facility] facility. By: [id number] Tommy Morgan MD /nt
[~2020-08-27 15:18] MED LIST changes: +BAYER CHEWABLE81 MG PO; +CARVEDILOL3.125 MG PO; +COZAAR 25 MG TA25 M1 PO; +DEMADEX20 MG PO; +FUROSEMIDE 40 M40 M1 PO; +IPRAT-ALBUT 0.5-3 ML INH; +K-DUR 20 MEQ T20 MEQ PO; +PACERONE 200 M200 M1 PO; +POTASSIUM CHLO10 ME1 PO
[2020-08-27 21:26] VITALS: BP 92/62
--- NOTE | 2020-08-28 01:20 | NUR ---
PT ADMITTED TO 510 VIA BED FROM 2N AT 2120. PT ALERT AND ORIENTED X 3, FORGETFUL. 02 ON AT 2L PER NC. LEFT CHEST DRESSING C/D/I. LEFT ARM IMMOBILIZER ON. PT ORIENTED TO ROOM AND USE OF CALL LIGHT. UNIT HANDBOOK PROVIDED TO PT. PT DID NOT WANT TO ANSWER ADMISSION QUESTIONS OR SIGN CONSENTS. STATED I WOULD RATHER DO THAT TOMORROW. FALL PRECAUTIONS REVIEWED WITH PT. BED ALARM ON FOR SAFETY. PT APPEARS TO BE SLEEPING ON HOURLY ROUNDS.
[2020-08-28 05:51] LABS: HEMATOCRIT 36.7 % (37.0-47.0); HEMOGLOBIN 11.7 gm/dL (12.0-15.0); MCH 28.9 pg (26.0-34.0); MCHC 31.8 g/dL (28.0-37.0); MCV 90.9 fL (80.0-100.0); RBC 4.03 mil/uL (4.20-5.00); RDW 15.4 % (10.5-14.5); WBC 9.4 thou/uL (4.0-11.0)
[2020-08-28 05:57] LABS: CALCIUM 8.7 mg/dL (8.5-10.1); POTASSIUM 3.5 mmol/L (3.5-5.1)
[2020-08-28 07:06] LABS: FOLIC ACID 13.5 ng/mL (8.6-58.9)
[2020-08-28 08:00] VITALS: BP 112/72
--- NOTE | 2020-08-28 09:51 | NUR ---
chart review. pt new to acute rehab yesterday. cm visit with jason via phone call. intro to cm, team meeting and dcp. she stated she "feels out of it"/pt . cm passed on information to bedside nurse to check on her. prior to hospital, lives home with family, she is home at times alone. has assist if needed. has cane, wc and [facility]. [facility] in past. no rehab in past. will cont following as needed for dc needs.
--- NOTE | 2020-08-28 11:00 | NUR ---
ASSUMED CARE AT 0700. SLEPT FAIR, REPORTED FEELING TIRED DUE TO LACK OF SLEEP. PAIN IS STABLE WITH HYDROCODONE GIVEN EARLIER BY MARTY RN. BEVERLY IN IMMOBILIZER AND OK TO REMOVE AT 1330 PER PROTOCOL. L CHEST INCISION INTACT WITH OLD DRAINAGE. R GROIN INCISION WITH DRESSING INTACT, NO HEMATOMA OR BLEEDING.PT EDUCATED TO FOLLOW UP WITH PRECAUTION AND TO MAINTAIN WEIGHT LIMITATION. UP WITH MIN ASSIST TO THE BSC. APPETITE FAIRLY GOOD. ACHS WITH SSI GIVEN ORDERED. PARTICIPATED WITH THERAPY.
--- NOTE | 2020-08-28 11:30 | NUR ---
Nutrition: Consult for poor po. Intake yesterday 75%, 50%, 10%. Wt down several pounds from admit but likely related to O>I first few days of acute stay. Appears wt has stabilized past several days. Pt was unavailable for interview at this time. BUN 30, no recent albumin. Torsemide, KCl, SSI and other meds reviewed. BG variable 93-327. Pt passessed video swallow this am. Had order for Glucerna with lunch, will increase to BID. Assess at mild nutrition risk. RD to f/u on or before 09/03.
[2020-08-28 20:00] VITALS: BP 106/62
[2020-08-28 21:00] VITALS: BP 118/64
--- NOTE | 2020-08-29 01:45 | NUR ---
PT ASSESSMENT COMPLETED AND VSS. MEDS GIVEN ORDERED AND WELL TOLERATED. FALL PRECAUTIONS IN PLACE. VOIDING WELL. PT VERY ANXIOUS AND FRUSTRATED. PT STATING THAT SHE CALLED 3 TIMES AND WAITED 3 HOURS FOR CARE. JUST COMING ON SHIFT. DAY RN SAID THAT THIS DID NOT HAPPEN. PROVIDED MUCH EMOTIONAL SUPPORT TO PATIENT. SLEEPING WELL AFTER SLEEPING MEDICATION. PT REFUSED HS SNACK WITH INSULIN. SLEEPING. WILL CONTINUE TO MONITOR FREQUENTLY.
--- NOTE | 2020-08-29 01:49 | NUR ---
DRESSING TO RIGHT GROIN DRY AND INTACT. LEFT CHEST SURGICAL SITE INTACT AND HEALING.
[2020-08-29 08:00] VITALS: BP 102/63
--- NOTE | 2020-08-29 09:35 | NUR ---
ASSUMMED CARE AT 0700. PATIENT IS ALERT AND ORIENTED X3. PATIENT IS FORGETFUL. PATIENT AIRCRAFT STRUCTURAL FITTER ARE EQUAL. LUNGS ARE CLEAR AND DEMINISHED. ABD IS SOFT, ROUNDED, WITH BSX4. PATIENT IS NON-WT BEARING ON HER LEFT ARM. PATIENT UP IN BED WITH S.T. AT BREAKFAST. MEDS NEEDED TO BE CRUSHED AND PUT IN APPLESAUCE. FALL AND SAFETY PROTOCOLS IN PLACE. DENIES PAIN AT THIS TIME. CONTINUES TO PROGRESS TOWARDS D/C GOALS. WILL CONTINUE TO MONITER.
[2020-08-29 19:25] VITALS: BP 122/96
--- NOTE | 2020-08-29 21:00 | NUR ---
AFTER LOSTARTAN AND MELATONIN GIVEN CRUSHED IN APPLESAUCE, PATIENT REFUSED TO TAKE ANYTHING ELSE. DECLINED GUAIFENESIN, INSULIN (FOR GLUCOSE OF 160), AND RECENTLY ORDERED ERGOCALIFEROL. OFFERED A SECOND DOSE OF MELATONIN, AND SHE DID NOT WANT THAT EITHER. UP TO BSC WITH ONE PERSON ASSIST BEING CAREFUL TO NO USE LEFT ARM.
[2020-08-30 05:47] LABS: ABSOLUTE NEUTROPHILS 6.6 thou/uL (1.4-8.2); BASOPHILS 0.2 % (0.0-2.0); EOSINOPHILS 0.3 % (0.0-3.0); HEMATOCRIT 33.9 % (37.0-47.0); HEMOGLOBIN 10.8 gm/dL (12.0-15.0); LYMPHOCYTES 11.1 % (24.0-44.0); MCH 29.1 pg (26.0-34.0); MCHC 31.9 g/dL (28.0-37.0); MONOCYTES 10.9 % (1.0-8.0); PLATELET COUNT 142 thou/uL (150-400); POLYS 77.5 % (36.0-66.0); RBC 3.72 mil/uL (4.20-5.00); RDW 15.7 % (10.5-14.5); WBC 8.5 thou/uL (4.0-11.0)
[2020-08-30 06:16] LABS: CALCIUM 8.5 mg/dL (8.5-10.1); CREATININE 1.2 mg/dL (0.6-1.0); MAGNESIUM 1.7 mg/dL (1.8-2.4); PHOSPHORUS 2.6 mg/dL (2.5-4.9); TOTAL BILIRUBIN 0.9 mg/dL (0.2-1.0); TOTAL PROTEIN 5.9 g/dL (6.4-8.2)
[2020-08-30 07:15] VITALS: BP 121/55
--- NOTE | 2020-08-30 11:30 | NUR ---
ASSUMED CARE AT 0700. SLEPT FAIR. ALERT AND ORIENTATED X 3. PT HAD REFUSED SEVERAL OF HER NIGHT MEDS YESTERDAY AND SHE MANAGED TO TAKE THEM ALL TODAY WITHOUT ANY DIFFICULTY. DR URBAN NOTIFIED PT PREFER TO TAKE COUGH SYRUP NEEDED INSTEAD OF ORAL GUAIFENESIN. FERNANDEZ ANY PAIN. ICD PLACED ON08/26 AND PT UNDERSTANDS OF NWB STATUS AND ICD PRECAUTION. DRESSING TO L CHEST INTACT. R GROIN DRESSING REMOVED POST HEART CATH ON 08/24. NO HEMATOMA SEEN. PT ABLE TO WALK WITH SBA. WALKED WITH PHY THERAPY TODAY IN THE HALLWAY. BLOOD SUGAR CHECKED AND INSULIN GIVEN APPROPRIATELY.
[2020-08-30 19:20] VITALS: BP 105/67
--- NOTE | 2020-08-31 01:08 | NUR ---
PT ALERT AND ORIENTED X 4, FORGETFUL. 02 ON AT 2L PER NC CONT. NON-PRODUCTIVE COUGH NOTED. GUAIFENESIN COUGH SYRUP GIVEN AT HS. PT SOB WITH ACTIVITY. PT DENIES SOB HOWEVER. 02 SAT 100% ON 2L. DRESSING TO LEFT CHEST DRY AND INTACT WITH SMALL AMT DRIED BLOOD. PT REFUSED TO HAVE MEDS CRUSHED OR TO TAKE THEM IN APPLESAUCE. DID TAKE THEM WHOLE WITH WATER WITHOUT DIFFICULTY. PT DENIES PAIN OR DISCOMFORT. BED ALARM ON FOR SAFETY. PT APPEARS TO BE SLEEPING ON HOURLY ROUNDS.
[2020-08-31 08:18] VITALS: BP 117/59
[2020-08-31 10:46] LABS: URINE BILIRUBIN NEGATIVE (Negative); URINE BLOOD NEGATIVE (Negative); URINE CLARITY CLEAR; URINE COLOR YELLOW; URINE GLUCOSE-RANDOM* NEGATIVE (Negative); URINE KETONES NEGATIVE (Negative); URINE NITRITE-REFLEX NEGATIVE (Negative); URINE PROTEIN (DIPSTICK) TRACE (Negative); URINE UROBILINOGEN 0.2 E.U./dl (0.2-1.0)
[2020-08-31 10:50] LABS: URINE LEUKOCYTES-REFLEX 2+ (Negative)
[2020-08-31 11:09] LABS: SQUAMOUS >10 Many /LPF (0-3)
[2020-08-31 11:10] LABS: CASTS None Seen /LPF (None Seen); CRYSTALS None Seen /LPF (None Seen)
[2020-08-31 11:12] LABS: URINE RBC None Seen /HPF (0-2); YEAST-REFLEX Present (None Seen)
--- NOTE | 2020-08-31 13:00 | NUR ---
ASSUMED CARE AT 0700. SLEPT OFF AND ON. ALERT AND ORIENTATED TO SELF AND PLACE AND SEEMS MORE CONFUSED TODAY. PT DENIES FEELING SHORT OF AIR OR HAVING ANY CHEST PAIN. 0N 2L 02, SAT 100%. APPETITE IS POOR AND DIURESED TODAY WITH 200ML OF DARK URINE. DENIES ANY BURNING OR LOW BACK PAIN, DOES REPORT URGENCY. UA SENT AND POSITIVE FOR UTI. GIVEN 1ST DOSE OF CEFTIN TODAY. HAD A MODERATE BM TODAY. INFORMED ST, PT REFUSED HER MEDS CRUSHED AND PREFERS TO TAKE MEDS WHOLE IN THIN LIQUID. PT IS ABLE TO DEMONSTRATE TAKING PILLS WHOLE WITHOUT ANY NOTICEABLE COUGHING OR IN DISTRESS. LUNGS CLEAR AND DIM AT THE BASES. CXR DONE YESTERDAY WITH NO ACUTE FINDINGS.
[2020-08-31 19:31] VITALS: BP 101/62
--- NOTE | 2020-09-01 03:20 | NUR ---
UP TO BSC WITH ONE PERSON ASSIST. SHE IS CAREFUL TO NOT BEAR ANY WEIGHT WITH LEFT ARM. LSC INCISION INTACT AND EFRAIN. DECLINED OFFER OF SECOND MELATONIN, SHE ALSO DECLINED HER SLIDING SCALE INSULIN AT HS WITH A BLOOD SUGAR OF 184. APPRECIATES THAT WE ARE NO LONGER CRUSHING HER PILLS OR GIVING THEM WITH APPLESAUCE, CEFTIN BROKEN IN HALF DUE TO SIZE, PATIENT TAKING HER TIME WHEN SWALLOWING HER PILLS ONE AT A TIME.
[2020-09-01 08:00] VITALS: BP 97/55
--- NOTE | 2020-09-01 13:32 | NUR ---
team meeting, recommendation: diet [facility] soft, thin liquid. pills and bills. dc ( pt, ot, st, nursing). assist with pills and bills. 24hr initial supervisor metalizing, daughter work with therapy on monday.
--- NOTE | 2020-09-01 18:28 | NUR ---
0700 ASSUMED CARE OF PATIENT, PATIENT IN BED AT THAT TIME. PATIENT CALM AND COOPERATIVE. ALERT AND ORIENTED X3. C/O CONSTIPATION. LBM TODAY SMALL. VS BP-97/55, P-61, R-20, T-97.8, O2 SATS 98%. PATIENT AMB TO BR WITH WALKER X 1 ASSIST. SOB NOTED WITH ACTIVITY. PATIENT ATE 100% OF DINNER. PATIENT IN BED RESTING AT THIS TIME.
[2020-09-01 19:30] VITALS: BP 110/51
--- NOTE | 2020-09-01 22:00 | NUR ---
PATIENT NOT WANTING ANY MEDICINE TONIGHT, CONVINCED TO TAKE HER ANTIBIOTIC IF PILL BROKEN IN HALF. DECLINED LOSARTAN WITH AE=899/51, DELINED INSULIN WITH HS BLOOD BGDZQ=907, DECLINED COLACE BECAUSE SHE HAS ALREADY TAKEN MIRALAX AFTER HER SMALL HARD STOOL TODAY, AND DID NOT WANT TO TAKE MELATONIN SINCE IT DOES NOT HELP HER SLEEP ANY BETTER. UP TO TOILET WITH CONTACT GUARD,GAIT BELT, AND WALKER. TAKING 3 PAUSES FOR A DEEP BREATH ON THE WAY AND ONE ON THE WAY BACK.
--- NOTE | 2020-09-02 02:39 | NUR ---
UP TO TOILET FOR VOID WITH GAIT BELT AND WALKER, THIS TIME AT MODERATE PACE WITH NO PAUSE NECESSARY TO CATCH HER BREATH.
[2020-09-02 08:00] VITALS: BP 101/73
--- NOTE | 2020-09-02 10:02 | NUR ---
ASSUMED CARE AT 0700. PATIENT IS ALERT AND ORIENTED X2. PATIENT SANCHEZ'S, BORING MACHINE OPERATOR ARE EQUAL. LUNGS ARE CLEAR AND DEMINISHED. ABD IS SOFT WITH BSX4. UP TO THE BATHROOM WITH GAIT BELT AND WALKER AND ASSIST OF 1 STAFF. PATIENT CONTINUES ON PO ABT. NO ADVERSE AFFECTS NOTED. FALL AND SAFETY PROTOCOLS IN PLACE. DENIES PAIN AT THIS TIME. CONTINUES TO PROGRESS TOWARDS D/C GOALS. WILL CONTINUE TO MONITER.
[2020-09-02 10:36] LABS: CALCIUM 8.5 mg/dL (8.5-10.1); CREATININE 1.4 mg/dL (0.6-1.0); POTASSIUM 4.2 mmol/L (3.5-5.1)
--- NOTE | 2020-09-02 14:30 | NUR ---
FAXED REFERRAL TO [facility] RECEIVED CONFIRMATION AND LEFT G WITH MARIA ANTONIA IN INTAKE.
[2020-09-02 19:30] VITALS: BP 127/76
--- NOTE | 2020-09-03 00:45 | NUR ---
PT ASSESSMENT COMPLETED AND VSS. MEDS GIVEN ORDERED AND WELL TOLERATED. INSULIN GIVEN ORDERED. UP TO THE BATHROOM WITH ASST/GAIT/WALKER. VOIDING LARGE AMOUNT OF YELLOW URINE. SAT WNL ON RA. SLEEPING MEDICATION WORKING WELL. SURGICAL SITE TO LEFT CHEST WITH GLUE HEALING. RIGHT GROIN SITE HEALING. SLEEPING WELL. FALL PRECAUTIONS IN PLACE. WILL CONTINUE TO MONITOR FREQUENTLY.
[2020-09-03 08:00] VITALS: BP 121/78
--- NOTE | 2020-09-03 11:00 | NUR ---
ASSUMED CARE AT 0700. SLEPT FAIRLY WELL. ALERT AND ORIENTATED X 3. FORGETFUL AT TIMES. DENIES ANY PAIN AND REFUSED LISA TYLENOL. PT ALSO HAD SEVERAL LOOSE STOOL, REFUSED MIRALAX. SAT ABOVE 92% ON ROOM AIR, CURRENTLY ON ROOM AIR. APPETITE IMPROVING. PT STILL SHORT OF AIR WITH EXERTION AND COMFORTABLE AT REST. LUE DRESSING INTACT WITH WEIGHT BEARING LIMITATION POST ICD. ABLE TO GET SHOWER POST 7 DAYS. PARTICIPATING WITH THERAPY. PLAN FOR DC HOME TOMORROW.
[2020-09-03 20:00] VITALS: BP 104/47
--- NOTE | 2020-09-03 23:59 | NUR ---
PT ASSESSMENT COMPLETED AND VSS. MEDS GIVEN ORDERED AND WELL TOLERATED. FALL PRECAUTIONS IN PLACE. UP TO THE BATHROOM WITH ASST/GAIT/WALKER. PT WAS ABLE TO PUT HER OWN GOWN ON THIS EVENING WHILE SITTING IN BED. PT SLEEPING WELL AFTER SLEEPING MEDICATION. PT REFUSED INSULIN. BG WAS 155 THIS EVENING. SHE SAID THAT SHE WAS JUST TOO TIRED AND WANTED TO BE LEFT ALONE TO SLEEPING. WILL CONTINUE TO MONITOR FREQUENTLY. RA SAT WNL AT THIS TIME.
[2020-09-04 07:15] VITALS: BP 130/62
--- NOTE | 2020-09-04 11:00 | NUR ---
ASSUMED CARE AT 0700. SLEPT FAIR. ALERT AND ORIENTATED X 3. PT REPORTED HAVING NON PRODUCTIVE COUGH. SAT ABOVE 92% ON ROOM AIR. ON FRANCK TELLO CLOTH MEASURER NOTIFIED, NO NEW ORDERS. PT AMBULATES IN THE ROOM WITH ASSIST, DIURESING ADEQ. LAST BM ON 09/03. APPETITE FAIRLY GOOD. PARTICIPATING WITH THERAPY TOWARDS GOAL. PLAN FOR DC ON MONDAY.
[2020-09-04 19:05] VITALS: BP 99/60
--- NOTE | 2020-09-05 02:42 | NUR ---
UP TO TOILET WITH CONTACT GUARD, GAIT BELT, AND WALKER. REFUSING ALL MEDS INCLUDING HER LAST DOSE OF ANTIBIOTIC AND HS INSULIN, ON SECOND THOUGHT SHE DID TAKE A TESSALON PERLE ONCE IT WAS EXPLAINED TO HER HOW IT WOULD EASE HER COUGH
--- NOTE | 2020-09-05 10:58 | NUR ---
ASSUMED CARE AT 0700. PATIENT IS ALERT AND ORIENTED X3, FORGETFUL AND AT TIMES CONFUSED. PATENT SANCHEZ'S, MANAGER RESEARCH DEVELOPMENT ARE EQUAL. LUNGS ARE CLEAR AND DEMINISHED. PATIENT HAS OCCASIONAL COUGH, SCED COUGH MED GIVEN. ABD IS SOFT WITH BSX4. UP IN THE CHAIR FOR MEALS. PATIENT APPETITE FAIR THIS A.M. PATIENT IS NON-WT BEARING TO LEFT ARM. FALL AND SAFETY PROTOCOLS IN PLACE. DENIES PAIN AT THIS TIME. CONTINUES TO PROGRESS SLOWLY TOWARDS D/C GOALS. WILL CONTINUE TO MONITER.
[2020-09-05 19:12] VITALS: BP 114/64
--- NOTE | 2020-09-05 23:43 | NUR ---
PT ALERT AND ORIENTED X 4, FORGETFUL. AMB TO BR WITH WALKER AND ASSIST X 1 WITHOUT DIFFICULTY. PT TOOK HS MEDS WITHOUT DIFFICULTY. BLOOD SUGAR 211 AT HS. INSULIN GIVEN ORDERED. PT DENIES PAIN OR DISCOMFORT. BED ALARM ON FOR SAFETY. PT APPEARS TO BE SLEEPING ON HOURLY ROUNDS.
[2020-09-06 08:33] VITALS: BP 112/76
--- NOTE | 2020-09-06 12:49 | NUR ---
ASSUMED CARE AT 0700. SLEPT FAIR, OFF AND ON. ALERT AND ORIENTATED X 3. DENIES ANY PAIN. DOES HAVE NON PRODUCTIVE COUGH AND IS ON TESSALON PEARLES, DENIES ANY CHEST PAIN OR ANY DISTRESS BUT DOES GET SOA WITH EXERTION AND CALM AT REST. SAT ABOVE 92% ON ROOM AIR. APPETITE FAIR, LAST BM 09/05, DIURESING FREQ SEC TO TORSEMIDE. TOLERATES MEDS WITH WATER WITH NO SIGNS OF ASPIRATION. UP WITH SBA WITH NO WEIGHT BEARING TO L UE. DRESSING TO L CHEST INTACT, NO SIGNS OF INFLAMMATION. ACCUCHECKS DONE AND INSULIN GIVEN ACCORDINGLY. PLAN FOR DC TOMORROW.
[2020-09-06 19:16] VITALS: BP 115/58
--- NOTE | 2020-09-07 00:46 | NUR ---
PT ALERT AND ORIENTED X 4, FORGETFUL. AMB TO BR WITH WALKER AND ASSIST X 1. LEFT CHEST INCISION C/D/I. PT REFUSED COLACE AT HS. PT DENIES PAIN OR DISCOMFORT. BED ALARM ON FOR SAFETY. PT APPEARS TO BE SLEEPING ON HOURLY ROUNDS.
[2020-09-07 07:00] VITALS: BP 129/80
[2020-09-07] MEDS ORDERED: PACERONE 200 M200 M1 PO ×2 (08:49→13:20)
[2020-09-07] MEDS ORDERED: ADULT LOW DOSE81 MG PO (08:49)
--- NOTE | 2020-09-07 09:00 | NUR ---
PT SITTING IN CHAIR THIS AM. NOTICED A SMALL AMT OF TREMORS. PT DENIES ANY PAIN. PT INCISION TO LEFT UPPER CHEST IS HEALING. NO SIGNS OF REDDNESS, DRAINAGE, OR PAIN. PT UP WITH WALKER WITH THERAPY. PT TOOK MEDS WHOLE WITHOUT ANY ISSUES.
[2020-09-07 09:22] VITALS: BP 129/80
--- NOTE | 2020-09-07 10:53 | NUR ---
per md ok to wait on speech for hh needs. fww will be delivered by provider plus today be for dc home with [facility] (pt, ot, and nurse. st when able to has with [facility]).
[2020-09-07] MEDS ORDERED: VITAMIN D21250 MC1 PO (11:27)
[2020-09-07] MEDS ORDERED: COLACE100 MG PO (11:27)
[2020-09-07] MEDS ORDERED: TRADJENTA5 MG PO (11:27)
--- NOTE | 2020-09-07 12:15 | NUR ---
PT SON IS HERE GATHERING BELONGINGS FOR DISCHARGE.
[2020-09-07] MEDS ORDERED: DEMADEX20 MG PO (13:22)
[2020-09-07] MEDS ORDERED: GLUCOTROL XL2.5 MG PO (13:39)
--- NOTE | 2020-09-07 14:00 | NUR ---
FRANCK TUMBLER OPERATOR AND NURSE FROM [facility] HERE TO GO OVER DISCHARGE MEDS AND MONITOR AT BEDSIDE FOR PACEMAKER. SON IS HERE FOR INSTRUCTIONS. PT VERY ADAMANT ABOUT NOT TAKING MEDS AT HOME TODAY DUE TO HAVING MEDS THIS AM. TOLD PT AND SON SHE WILL NEED ANY HS MEDS AND 1700 MED COREG. PT LEFT VIA W/C WITH PERSONAL WALKER THAT WAS DELIVERED TO ROOM TODAY.
--- NOTE | 2020-09-07 14:21 | NUR ---
PT DISCHARGING TODAY TO HOME WITH JUNIOR AT HOME FAXED DC ORDERS/SUMMARY RECEIVED CONFIRMATION SPOKE WITH MARIA ANTONIA IN INTAKE.
== END 2020-09-07 13:40 | disposition home health service (06) | DRG 70 ==
PROVIDERS: Internal Medicine; Nurse Practitioner; Nurse Practitioner Adult Health; Nurse Practitioner Family; ADMIT Physical Medicine & Rehabilitation; ATTEND Physical Medicine & Rehabilitation
DX: G93.40 Encephalopathy, unspecified (principal); J96.21 Acute and chronic respiratory failure with hypoxia; I50.23 Acute on chronic systolic (congestive) heart failure; I42.9 Cardiomyopathy, unspecified; N39.0 Urinary tract infection, site not specified; N17.9 Acute kidney failure, unspecified; I47.1 Supraventricular tachycardia; E46 Unspecified protein-calorie malnutrition; R53.81 Other malaise; I27.20 Pulmonary hypertension, unspecified; E87.5 Hyperkalemia; E11.9 Type 2 diabetes mellitus without complications; I11.0 Hypertensive heart disease with heart failure; D69.6 Thrombocytopenia, unspecified; E78.00 Pure hypercholesterolemia, unspecified; E55.9 Vitamin D deficiency, unspecified; K59.00 Constipation, unspecified; Z95.0 Presence of cardiac pacemaker; Z68.20 Body mass index [BMI] 20.0-20.9, adult
CPT/HCPCS: 10112

== ENCOUNTER → 2021-03-30 | Outpatient (CLI) | payer OTHER, BC ==
[~2021-03-30] MED LIST changes: +ADULT LOW DOSE81 MG PO; +COLACE100 MG PO; +GLUCOTROL XL2.5 MG PO; +TRADJENTA5 MG PO; +VITAMIN D21250 MC1 PO
== END ==
LOC: SJCVCIMAG 08:33
PROVIDERS: ATTEND Internal Medicine Cardiovascular Disease
DX: I08.8 Other rheumatic multiple valve diseases (principal); R94.31 Abnormal electrocardiogram [ECG] [EKG]; I24.9 Acute ischemic heart disease, unspecified; I42.9 Cardiomyopathy, unspecified; I47.2 Ventricular tachycardia; I11.0 Hypertensive heart disease with heart failure; I50.21 Acute systolic (congestive) heart failure; E11.9 Type 2 diabetes mellitus without complications; I48.0 Paroxysmal atrial fibrillation; Z95.810 Presence of automatic (implantable) cardiac defibrillator; Z13.220 Encounter for screening for lipoid disorders; Z98.890 Other specified postprocedural states; Z79.899 Other long term (current) drug therapy; Z79.84 Long term (current) use of oral hypoglycemic drugs; Z88.8 Allergy status to other drugs, medicaments and biological substances